=== PATIENT | female | born 1955 | race Hispanic/Latino ===

== ENCOUNTER → 2021-04-14 | Outpatient (CLI) | payer MEDICARE | LOC: MRI 08:36 | PROVIDERS: ATTEND Internal Medicine Gastroenterology | DX: R10.10 Upper abdominal pain, unspecified (principal); R63.4 Abnormal weight loss | CPT/HCPCS: 74181 ==

== ENCOUNTER → 2021-05-09 | Outpatient (CLI) | payer OTHER ==
[2021-05-06 10:40] LABS: HEMOGLOBIN 13.9 g/dL (12.0-16.0)
[2021-05-06 10:41] LABS: INR 0.91
[2021-05-06 10:42] LABS: PARTIAL THROMBOPLASTIN TIME 30.1 seconds (23.8-35.5)
[~2021-05-09] MED LIST: FENTANYL CITRATE/PF 100MCG/2 ML INJ ONE; MIDAZOLAM HCL 2 MG/2 ML VIAL ONE
== END ==
LOC: US 08:54
PROVIDERS: ATTEND Internal Medicine Gastroenterology
DX: E11.9 Type 2 diabetes mellitus without complications (principal); R74.8 Abnormal levels of other serum enzymes; I10 Essential (primary) hypertension; Z20.822 Contact with and (suspected) exposure to COVID-19
CPT/HCPCS: 36415; 47000; 76942; 85014; 85049; 85610; 85730; 88307; J2250; J3010; U0002